=== PATIENT | male | born 1980 | race Caucasian/White ===

== ENCOUNTER 2019-12-08 19:47 | Emergency (ER) | payer MEDICAID ==
[~2019-12-08] VITALS: Ht 177.8 cm; Wt 74.8 kg
[2019-12-08 20:08] VITALS: Ht 177.8 cm; Wt 74.8 kg
== END 2019-12-09 01:18 | disposition expired ==
LOC: ED 19:47
DX: I46.9 Cardiac arrest, cause unspecified (principal); S05.62XA Penetrating wound without foreign body of left eyeball, initial encounter; S01.21XA Laceration without foreign body of nose, initial encounter; S10.93XA Contusion of unspecified part of neck, initial encounter; S80.02XA Contusion of left knee, initial encounter; S80.01XA Contusion of right knee, initial encounter; S30.811A Abrasion of abdominal wall, initial encounter; S70.212A Abrasion, left hip, initial encounter; V29.49XA Motorcycle driver injured in collision with other motor vehicles in traffic accident, initial encounter; Y93.I9 Activity, other involving external motion; Y92.488 Other paved roadways as the place of occurrence of the external cause; Y99.8 Other external cause status
CPT/HCPCS: C1729